=== PATIENT | female | born 1955 | race Caucasian/White ===

== ENCOUNTER → 2016-04-18 | Outpatient (CLI) | payer OTHER ==
--- NOTE | 2016-04-18 10:00 | KCIC ---
PROCEDURE Cervical spine MRI without contrast. HISTORY Neck and left shoulder pain. Hand numbness. TECHNIQUE Multiplanar and multi sequence magnetic resonance imaging of the cervical spine was performed without contrast. COMPARISON None. FINDINGS There is mild cervical kyphosis. There is minimal anterolisthesis of C2 on C3 and retrolisthesis of C5 on C6. There is degenerative endplate remodeling and disc space narrowing predominately at C5-C6. There is no suspicious osseous lesion. No spinal cord lesion is seen. The posterior fossa and skullbase are unremarkable. There is slight increased signal on inversion recovery images within the C3-C4 and C4-C5 interspinous spaces, likely artifactual or due to soft tissue inflammation. At C2-C3, there is endplate remodeling. There is mild left greater than right facet arthropathy. There is mild left foraminal stenosis. At C3-C4, there is a disc bulge and endplate remodeling. There is mild facet arthropathy. There is minimal left foraminal stenosis. At C4-C5, there is a disc bulge and endplate remodeling. There is no stenosis. At C5-C6, there is a left posterior lateral disc osteophyte complex superimposed on a disc bulge and endplate remodeling. There is left uncovertebral arthropathy. There is mild left foraminal stenosis. At C6-C7, there is a posterior central disc protrusion superimposed on a disc bulge and endplate remodeling. There is no stenosis. IMPRESSION Multilevel degenerative change within the cervical spine, described in detail above. This results in suspected mild left foraminal stenosis at C2-C3 and C5-C6 and minimal left foraminal stenosis at C3-C4. Electronically signed by: Leticia Fox (Apr 18, 2016 09:59:07)
--- NOTE | 2016-04-18 11:00 | KCIC ---
Examination: MRI left shoulder without contrast. HISTORY History of left shoulder pain. COMPARISON None available. TECHNIQUE Multiplanar, multisequence MR imaging of the left shoulder performed without contrast Findings : The long head of the biceps tendon is within the bicipital groove. The attachment of the long head of the biceps tendon to superior labral anchor grossly appears intact.The attachment of subscapularis tendon grossly appears intact. There is a diffuse moderate thickened appearance of the supraspinatus tendon likely tendinosis. There is fluid in the subacromial subdeltoid bursa which raises suspicion of a small focus of full-thickness tear in the anterior fibers of the supraspinatus tendon. On series 6 image #15, there is questionable full-thickness tear of the anterior fibers of the supraspinatus tendon with extension of fluid in the subacromial subdeltoid bursa. The attachment of the infraspinatus tendon, teres minor tendon grossly appears intact. There is mild increased signal identified throughout the labrum likely due to degeneration. No evidence of labral tear identified. The muscle bulk grossly appears unremarkable. Mild degenerative changes identified in the acromioclavicular joint and the glenohumeral joint The acromion is type 2 with lateral downsloping with the inferior aspect of the acromion abutting the superior aspect of the supraspinatus tendon. IMPRESSION - Moderate to severe tendinosis supraspinatus tendon. There is fluid in subacromial subdeltoid bursa, which raises suspicion of a small focus of full-thickness tear of the supraspinatus tendon particularly in the anterior fibers seen only on the coronal view series 6 image 15. However an obvious tear is not clearly identified on the sagittal or axial views. Other possibility includes bursitis. This can be better evaluated with an MR arthrogram. - The inferior aspect of the acromion abuts the superior aspect of the supraspinatus tendon. Correlate for impingement. - Mild degenerative changes labrum. - Mild degenerative changes acromioclavicular joint and glenohumeral joint. Electronically signed by: Brandon Duarte (Apr 18, 2016 10:58:47)
== END | disposition home or self-care (01) ==
LOC: KCIC MRI 08:48
PROVIDERS: ATTEND Orthopaedic Surgery
DX: M25.562 Pain in left knee (principal); M54.5 Low back pain
CPT/HCPCS: 72141; 73221

== ENCOUNTER → 2016-05-30 | Outpatient (CLI) | payer OTHER ==
--- NOTE | 2016-05-30 15:11 | RAD ---
Indication chronic low back pain. A neutral lateral view of the lower thoracic and lumbar spine was obtained as well as additional flexion and extension views. On the neutral view some mild facet degenerative changes are seen in the lower lumbar spine. Vertebral height is well maintained. An acute finding is not seen. There is slight disc space narrowing at L1-2 with some associated degenerative endplate changes. On the flexion and extension views no abnormal movement is seen IMPRESSION: Mild degenerative change predominantly centered at L1-2. No abnormal movement seen with flexion and extension. No acute finding seen
== END | disposition home or self-care (01) ==
LOC: RAD 13:46
PROVIDERS: ATTEND Anesthesiology
DX: M54.16 Radiculopathy, lumbar region (principal)
CPT/HCPCS: 72100